=== PATIENT | female | born 1955 | race Caucasian/White ===

== ENCOUNTER 2019-09-15 10:23 | Day surgery (SDC) | payer OTHER ==
[~2019-09-15] VITALS: Ht 157.5 cm; Wt 63.9 kg
[~2019-09-15 10:23] MED LIST: ASPI81TA85 PO; CYAN500T8 PO; IBUP80TA PO; MULTCAP PO; ceFAZolin SOD 2 GM in IV 1 EA IV ONE
[2019-09-15] MEDS ORDERED: ROPIvacaine 0.5% 30 ML INJECTION (J2795 PER 1MG) ONE (10:24)
[2019-09-15] MEDS ORDERED: dexameTHASONE 10 MG/1 ML VIAL PRES.FREE (J1100) ONE (10:24)
[2019-09-15] MEDS ORDERED: fentaNYL 250 MCG/5 ML INJECTION (J3010) As Ordered ONE (10:55)
[2019-09-15] MEDS ORDERED: propofoL 200 MG/20 ML VIAL As Ordered ONE (10:55)
[2019-09-15] MEDS ORDERED: LIDOCAINE 2% INJ 100 MG/5 ML SDV (FOR ANES.) As Ordered ONE (10:55)
[2019-09-15] MEDS ORDERED: ROCURONIUM BROMIDE 50 MG/5 ML VIAL As Ordered ONE (10:55)
[2019-09-15] MEDS ORDERED: MIDAZOLAM INJ 2 MG/2 ML VIAL (J2250) As Ordered ONE ×2 (10:56→11:59)
[2019-09-15] MEDS ORDERED: LR 1,000 ML IV ONE (11:00)
[2019-09-15] MEDS ORDERED: fentaNYL 100 MCG/2 ML INJECTION (J3010) As Ordered ONE (11:59)
[2019-09-15] MEDS: MIDAZOLAM INJ 2 MG/2 ML VIAL (J2250) IV SCH ×2 (12:12→12:31)
[2019-09-15] MEDS ORDERED: dexameTHASONE 4 MG/ML 1ML VIAL (J1100) As Ordered ONE (13:00)
[2019-09-15] MEDS ORDERED: ONDANSETRON 4MG/2ML VIAL (J2405) As Ordered ONE (13:00)
[2019-09-15] MEDS ORDERED: fentaNYL 100 MCG/2 ML INJECTION (J3010) IV PRN ×2 (13:00→13:45)
[2019-09-15] MEDS ORDERED: KETOROLAC 60 MG/2 ML VIAL (J1885) As Ordered ONE (13:00)
[2019-09-15] MEDS ORDERED: ePHEDrine SULFATE 25 MG/5 ML(5MG/ML) SYRINGE As Ordered ONE (13:02)
[2019-09-15] MEDS ORDERED: ACETAMINOPHEN 1000MG 100ML IV BTL (OFIRMEV) (J0131 PER 10MG) As Ordered ONE (13:02)
[2019-09-15] MEDS ORDERED: LR 1,000 ML IV SCH (13:45)
[2019-09-15] MEDS ORDERED: oxyCODONE 5MG TAB PO PRN (13:45)
[2019-09-15] MEDS ORDERED: ONDANSETRON 4MG/2ML VIAL (J2405) IV PRN (13:45)
--- NOTE | 2019-09-15 15:09 | REP ---
LEFT WRIST: THREE VIEWS. HISTORY: Operative imaging. 56 seconds of fluoroscopy time is reported. FINDINGS: A sequence of three last image hold fluoroscopically obtained spot radiographs of the left wrist document open reduction and internal fixation procedure of the distal radius. Electronically Signed by Matty Saleh MD 09/15/2019 05:42 P
[2019-09-15 15:35] VITALS: BP 134/75
--- NOTE | 2019-09-15 21:07 | RO ---
DATE OF PROCEDURE: 09/15/2019 PREPROCEDURE DIAGNOSIS: Left distal radius interarticular fracture. POSTPROCEDURE DIAGNOSIS: Left distal radius interarticular fracture. PROCEDURE: Open reduction internal fixation left distal radius articular fracture. SURGEON: Marlon Ghosh MD MATERIAL DAMAGE ADJUSTER: None. ANESTHESIA: General with peripheral nerve block. INDICATIONS: This is a 64-year-old female that presented to my office 2 weeks out from an injury that had significantly dorsally displaced distal radius due to high activity and function. We discussed the risks and benefits of surgical intervention including, but not limited to, infection, damage to surrounding structures, incomplete relief, malunion, nonunion, patient wished to proceed. COMPLICATIONS: None. BLOOD LOSS: Minimal. TOURNIQUET TIME: 37 minutes. DESCRIPTION OF PROCEDURE: The patient was brought back to the operating room (OR) in the supine position, underwent general anesthesia at which point the left arm was prepped and draped in the usual fashion. We then had a time-out confirming site, side and surgery. Once all in agreement, we elevated the tourniquet up to 250 mmHg. We then made a longitudinal incision overlying FCR, dissected through subcutaneous tissue encountering the superficial FCR sheath, split it in line with fibers, retracted the FCR ulnarly and split the deep portion of the sheath encountering FPL and retracted it ulnarly as well. At which point, we identified the pronator quadratus and lifted it off the distal radius of the sheath. We then found the fracture site. Due to it being 2 weeks from the fracture, there had already been some healing. We had to use a combination of scalpel, hook osteotome, and freer to free up the distal radius fracture and mobilize the fragment. At which point, we used a [employer] variable angle distal radius plate and affixed it distally to the distal fragment through four locking screws. These were confirmed on both AP and lateral. During this maneuver, we also had a #8 screw in the most proximal third hole of the wrist plate to provide volar tilt. Once we were happy with our distal fixation, and we confirmed that it was not out dorsally or interarticular, we then removed the 8 locking screw proximally and compressed the plate to the bone, and in addition to an indirect reduction technique, we then placed a cortical screw through the oblong hole; it was a #12, reduced the plate to the bone. We then placed two proximal screws, 12 as well to hold that in place. Our oblong hole screw lost its fixation, at which point we switched it to a locking 12. We confirmed our reduction on AP and laterals. We were happy with our reduction and fixation. We irrigated the wound thoroughly and closed with #3-0 Vicryl, #3-0 Monocryl, Mastisol, sterile gauze, then placed a volar splint over top. Tourniquet was let down. The patient was awakened and taken to the post-anesthesia care unit (PACU) in stable condition. POSTOPERATIVE PLAN: The patient will work on pain control and range of motion; most specifically finger range of motion as she is already significantly lacking this, unable to make a composite fist preoperatively. I will see her at 2 weeks for a repeat clinical check at that time.
== END 2019-09-15 16:02 | disposition home or self-care (01) ==
LOC: M SDC 10:23
PROVIDERS: ATTEND Orthopaedic Surgery Hand Surgery
DX: S52.572A Other intraarticular fracture of lower end of left radius, initial encounter for closed fracture (principal); X58.XXXA Exposure to other specified factors, initial encounter; Y92.89 Other specified places as the place of occurrence of the external cause; Y93.9 Activity, unspecified; Y99.9 Unspecified external cause status; Z79.82 Long term (current) use of aspirin; Z88.8 Allergy status to other drugs, medicaments and biological substances; Z88.5 Allergy status to narcotic agent
CPT/HCPCS: 25608; 64415; 76000; C1713; J0131; J0690; J1100; J1885; J2250; J2405; J2795; J3010